=== PATIENT | female | born 1975 | race Caucasian/White ===

== ENCOUNTER → 2017-12-31 | Outpatient (CLI) | payer OTHER | END | disposition home or self-care (01) | LOC: LAB EV 08:23 → LAB SHORT 08:23 | DX: N30.01 Acute cystitis with hematuria (principal); B96.1 Klebsiella pneumoniae [K. pneumoniae] as the cause of diseases classified elsewhere | CPT/HCPCS: 87077; 87086; 87186 ==

== ENCOUNTER → 2018-01-08 | Outpatient (CLI) | payer OTHER | LOC: LAB EV 18:20 → LAB SHORT 18:20 | DX: N39.0 Urinary tract infection, site not specified (principal) | CPT/HCPCS: 87077; 87086; 87186 ==

== ENCOUNTER 2020-11-16 07:16 | Day surgery (SDC) | payer BC ==
[~2020-11-16] VITALS: Ht 172.7 cm; Wt 88.0 kg
--- NOTE | 2020-11-16 08:02 | NUR ---
Ambulatory in Day Surgery Patient states colon prep results clear. History, Chart, Medications and Allergies reviewed before start of procedure. Lungs clear T/O to Auscultation. Patient confirms NPO status and agrees with scheduled surgery. Pre-Op teaching done. Pt verbalizes understanding.
--- NOTE | 2020-11-16 08:15 | NUR ---
11/16/20 0815 Robin Yanez History, Chart, Medications and Allergies reviewed before start of procedure. 3-LEAD EKG REVIEWED WITH PHYSICIAN PRIOR TO START OF PROCEDURE. O2 VIA N/C INTACT THROUGHOUT SEDATION/PROCEDURE. MONITOR INTACT WITH CONTINUOUS PULSE OXIMETRY AND INTERMITTENT BP. PATIENT DETERMINED TO BE ASA APPROPRIATE FOR PROPOFOL SEDATION PRIOR TO START OF PROCEDURE BY DR. VASQUEZ
--- NOTE | 2020-11-16 09:20 | NUR ---
Patient up to Ambulate independently. Gait steady. Discharge instructions reviewed with patient. Patient verbalizes understanding. Copy given to patient to take home. Patient States Post-Procedure ride home has been arranged. Discharged via wheelchair to private car for ride home.
== END 2020-11-16 22:42 | disposition home or self-care (01) ==
LOC: SURS 07:16 → ORSCMMR 07:16 → ORD 08:00 → ORSCMMR 08:00 → SURS 22:42 → ORSCMMR 22:42
PROVIDERS: Internal Medicine Gastroenterology
PROC: 0DBN8ZX Excision of Sigmoid Colon, Via Natural or Artificial Opening Endoscopic, Diagnostic (ICD-10-PCS; principal; 2020-11-16 08:00)
DX: K62.5 Hemorrhage of anus and rectum (principal); D12.5 Benign neoplasm of sigmoid colon; R10.84 Generalized abdominal pain; Z80.0 Family history of malignant neoplasm of digestive organs; K57.30 Diverticulosis of large intestine without perforation or abscess without bleeding
CPT/HCPCS: 88305; J2250; J2704; J7120

== ENCOUNTER 2021-02-05 07:28 | Day surgery (SDC) | payer BC ==
[~2021-02-05] VITALS: Ht 172.7 cm; Wt 90.3 kg
[~2021-02-05 07:28] MED LIST: DOXY100 PO
--- NOTE | 2021-02-05 08:01 | NUR ---
02/05/21 0800 Eva Tucker History, Chart, Medications and Allergies reviewed before start of procedure. Patient confirms NPO status and agrees with scheduled surgery. 3-LEAD EKG REVIEWED WITH PHYSICIAN PRIOR TO START OF PROCEDURE. MONITOR INTACT WITH CONTINUOUS PULSE OXIMETRY AND INTERMITTENT BP. PATIENT DETERMINED TO BE ASA APPROPRIATE FOR PROPOFOL SEDATION PRIOR TO START OF PROCEDURE BY .Bite Block Placed & REMOVED AT END OF CASE.
--- NOTE | 2021-02-05 09:01 | NUR ---
PT FLANNERY X 4, CASIE, SK-PWD p PROCEDURE. S/O SLIGHT NAUSEA AND VALLEJO, WHICH IS CHRONIC. MEDICATED c TYLENOL 1 GM PER MD ORDERS. TOLERATES PO FLUID AND CRACKERS s DIFFICULTY. GIVEN DC INSTRUCTIONS. VERBALIZES AN UNDERSTANDING s QUESTIONS. RX FOR PRILOSEC CALLED INTO [facility]. CALLED FOR RIDE HOME, IN MEETING WILL CALL WHEN HEADED TO HOSPITAL. IV DC'D, CATH INTACT AND PRESSURE DRESSING APPLIED. NECKLACE AND WATCH BACK IN PLACE. GIVEN WARM BLANKETS.
--- NOTE | 2021-02-05 09:17 | NUR ---
PT DENIES NAUSEA OR VALLEJO. CONTINUES TO VERBALIZE DC INSTRUCTIONS s QUESTIONS. PT TRANSFERS TO s DIFFICULTY. OTD IN NAD BY JUSTIN TO SAFE RIDE HOME.
== END 2021-02-05 23:00 | disposition home or self-care (01) ==
LOC: ORSCMMR 07:28 → ORD 08:00 → ORSCMMR 23:00
DX: R11.2 Nausea with vomiting, unspecified (principal); R10.9 Unspecified abdominal pain; K29.70 Gastritis, unspecified, without bleeding; F17.210 Nicotine dependence, cigarettes, uncomplicated; Z79.899 Other long term (current) drug therapy
CPT/HCPCS: 88305; 88342; A9270; J2704; J7120

== ENCOUNTER 2021-04-18 06:57 | Day surgery (SDC) | payer BC ==
[~2021-04-18 06:57] MED LIST changes: +OMEP20ER PO
--- NOTE | 2021-04-18 07:09 | NUR ---
Ambulatory in Day Surgery. History, Chart, Medications and Allergies reviewed before start of procedure. Patient States Post-Procedure ride home has been arranged. Patient confirms NPO status and agrees with scheduled surgery.
--- NOTE | 2021-04-18 08:02 | NUR ---
04/18/21 0802 Prashanth Jorgensen History, Chart, Medications and Allergies reviewed before start of procedure.MONITOR INTACT WITH CONTINUOUS PULSE OXIMETRY AND INTERMITTENT BP.3-LEAD EKG REVIEWED WITH PHYSICIAN PRIOR TO START OF PROCEDURE.O2 VIA N/C INTACT THROUGHOUT SEDATION/PROCEDURE. PATIENT DETERMINED TO BE ASA APPROPRIATE FOR PROPOFOL SEDATION PRIOR TO START OF PROCEDURE BY DR. VASQUEZ.
--- NOTE | 2021-04-18 08:24 | NUR ---
DR VASQUEZ AT BEDSIDE TALKING WITH PATIENT. STATES NAUSEA IS BETTER. GIVEN TEA AT THIS TIME
--- NOTE | 2021-04-18 08:57 | NUR ---
Discharge instructions reviewed with patient. Patient verbalizes understanding. Copy given to patient to take home. Patient States Post-Procedure ride home has been arranged. Discharged via wheelchair to private car for ride home.
== END 2021-04-18 22:44 | disposition home or self-care (01) ==
LOC: ORSCMMR 06:57 → ORSCSDS 08:00 → ORD 08:00 → ORSCMMR 22:44
PROVIDERS: Internal Medicine Gastroenterology
PROC: 0DB78ZX Excision of Stomach, Pylorus, Via Natural or Artificial Opening Endoscopic, Diagnostic (ICD-10-PCS; principal; 2021-04-18 08:00)
DX: R10.13 Epigastric pain (principal); R11.0 Nausea; K29.70 Gastritis, unspecified, without bleeding; R68.81 Early satiety; Z87.11 Personal history of peptic ulcer disease; Z80.0 Family history of malignant neoplasm of digestive organs; Z79.899 Other long term (current) drug therapy
CPT/HCPCS: 88305; 88341; 88342; A9270; J2405; J2704; J7120